=== PATIENT | female | born 1950 | race Hispanic/Latino ===

== ENCOUNTER → 2021-09-18 | Outpatient (CLI) | payer MEDICARE | END | disposition home or self-care (01) | LOC: SHCH 09:39 | PROVIDERS: ATTEND Student in an Organized Health Care Education/Training Program | DX: R22.42 Localized swelling, mass and lump, left lower limb (principal) | CPT/HCPCS: 93306; 93970 ==

== ENCOUNTER → 2021-11-21 | Outpatient (CLI) | payer MEDICARE | END | disposition home or self-care (01) | LOC: RAH 10:58 | PROVIDERS: ATTEND Student in an Organized Health Care Education/Training Program | DX: I82.409 Acute embolism and thrombosis of unspecified deep veins of unspecified lower extremity (principal); R22.43 Localized swelling, mass and lump, lower limb, bilateral | CPT/HCPCS: 93970 ==

== ENCOUNTER 2022-08-21 17:15 | Inpatient (IN) | payer MEDICARE ==
[~2022-08-21] VITALS: Ht 157.5 cm; Wt 128.1 kg
[2022-08-21 18:30] LABS: BASOPHILS % (AUTO) 0.7 % (0.0-5.0); EOSINOPHILS % (AUTO) 0.9 % (0.0-8.0); HEMATOCRIT 42.8 % (36-48); LYMPHOCYTES % (AUTO) 14.7 % (21.0-51.0); MEAN CORPUSCULAR HEMOGLOBIN 30.3 pg (27.0-33.0); MEAN CORPUSCULAR HGB CONC 33.6 g/dL (32.0-36.0); MEAN CORPUSCULAR VOLUME 90.1 fL (79-99); MONOCYTES % (AUTO) 11.1 % (3.0-13.0); PLATELET COUNT (AUTO) 148 K/uL (130-400); RED BLOOD CELL COUNT(AUTO) 4.75 MIL/uL (4.00-5.50); RED CELL DISTRIBUTION WIDTH 13.7 % (11.0-15.5); WHITE BLOOD COUNT (AUTO) 6.9 K/uL (4.8-10.8)
[2022-08-21 18:38] LABS: CREATININE 1.1 mg/dL (0.5-1.5)
[2022-08-21 18:51] LABS: ALBUMIN 3.6 g/dL (3.5-5.0); THYROID STIMULATING HORMONE 0.92 uIU/mL (0.36-3.74); TOTAL PROTEIN, SERUM 7.2 g/dL (6.0-8.3)
[2022-08-21] MEDS ORDERED: IOHEXOL-350 75 ML VIAL IV ONE (19:00)
[2022-08-21] MEDS ORDERED: HEPARIN 5,000 UNIT VIAL IV PRN (20:00)
[2022-08-21 20:04] LABS: INR 1.05 (0.85-1.15); PROTHROMBIN TIME 11.4 SEC (9.6-11.6)
[2022-08-21] MEDS: HEPARIN 25,000 UNITS/250ML D5W 250 ML IV SCH (21:00)
[2022-08-21 22:10] VITALS: BP 141/48
[2022-08-21] MEDS ORDERED: TRAM50TA4 PO (22:32)
[2022-08-21] MEDS ORDERED: LEVO100T4 PO (22:32)
[2022-08-21] MEDS ORDERED: CHOL500050 PO (22:32)
[2022-08-21] MEDS ORDERED: SEMA1PEN3 SQ (22:32)
[2022-08-21 23:39] VITALS: BP 149/80
[2022-08-22 04:00] VITALS: BP 152/77
[2022-08-22] MEDS: LOSARTAN 25 MG TABLET PO SCH (07:55)
[2022-08-22] MEDS: FAMOTIDINE 20MG TAB PO SCH (07:55)
[2022-08-22] MEDS: SPIRONOLACTONE 25 MG TAB PO SCH (07:55)
[2022-08-22] MEDS: FUROSEMIDE 40MG VIAL IV SCH ×2 (07:56→20:37)
[2022-08-22 07:57] VITALS: BP 140/80
[2022-08-22] MEDS: LEVOTHYROXINE 100 MCG TABLET PO SCH (08:08)
[2022-08-22] MEDS ORDERED: ERGOCALCIFEROL (VITAMIN D2) 50,000 UNIT CAPSULE PO SCH ×2 (09:00)
[2022-08-22] MEDS ORDERED: FUROSEMIDE 40MG VIAL IV SCH (09:00)
[2022-08-22] MEDS: HEPARIN 25,000 UNITS/250ML D5W 250 ML IV SCH (10:09)
[2022-08-22 11:49] VITALS: BP 150/74
[2022-08-22 15:47] VITALS: BP 141/73
[2022-08-22 19:28] VITALS: BP 143/85
[2022-08-22 23:14] VITALS: BP 133/72
[2022-08-23 00:06] VITALS: BP 143/86
[2022-08-23 03:43] VITALS: BP_SYST 115; BP_SYST 123; BP_DIAS 69; BP_DIAS 83
[2022-08-23 04:03] LABS: BASOPHILS % (AUTO) 0.8 % (0.0-5.0); EOSINOPHILS % (AUTO) 1.1 % (0.0-8.0); HEMATOCRIT 39.5 % (36-48); LYMPHOCYTES % (AUTO) 28.8 % (21.0-51.0); MEAN CORPUSCULAR HEMOGLOBIN 30.2 pg (27.0-33.0); MEAN CORPUSCULAR HGB CONC 33.7 g/dL (32.0-36.0); MEAN CORPUSCULAR VOLUME 89.8 fL (79-99); MONOCYTES % (AUTO) 15.4 % (3.0-13.0); NEUTROPHILS % (AUTO) 53.1 % (40.0-77.0); PLATELET COUNT (AUTO) 152 K/uL (130-400); RED CELL DISTRIBUTION WIDTH 13.7 % (11.0-15.5); WHITE BLOOD COUNT (AUTO) 6.1 K/uL (4.8-10.8)
[2022-08-23 04:07] LABS: CREATININE 0.8 mg/dL (0.5-1.5); POTASSIUM 3.5 mmol/L (3.5-5.1)
[2022-08-23] MEDS: HEPARIN 25,000 UNITS/250ML D5W 250 ML IV SCH (05:22)
[2022-08-23] MEDS: LEVOTHYROXINE 100 MCG TABLET PO SCH ×2 (05:25→05:40)
[2022-08-23] MEDS: LOSARTAN 25 MG TABLET PO SCH (07:39)
[2022-08-23] MEDS: FAMOTIDINE 20MG TAB PO SCH (07:39)
[2022-08-23] MEDS: FUROSEMIDE 40MG VIAL IV SCH ×2 (07:40→20:55)
[2022-08-23] MEDS: SPIRONOLACTONE 25 MG TAB PO SCH (07:40)
[2022-08-23 08:00] VITALS: BP 157/73
[2022-08-23] MEDS ORDERED: TRAMADOL HCL 50 MG TABLET PO PRN (09:00)
[2022-08-23 16:00] VITALS: BP 133/67
[2022-08-23 19:00] VITALS: BP 143/86
[2022-08-23] MEDS: RIVAROXABAN 2.5 MG TABLET PO SCH (20:55)
[2022-08-24] VITALS (7 sets, daily range): BP systolic 132–158; BP diastolic 69–91
[2022-08-24 04:31] LABS: POTASSIUM 3.9 mmol/L (3.5-5.1)
[2022-08-24] MEDS: LEVOTHYROXINE 100 MCG TABLET PO SCH ×2 (06:06→06:30)
[2022-08-24] MEDS: SPIRONOLACTONE 25 MG TAB PO SCH (07:56)
[2022-08-24] MEDS: FAMOTIDINE 20MG TAB PO SCH (07:56)
[2022-08-24] MEDS: FUROSEMIDE 40MG VIAL IV SCH ×2 (07:56→20:25)
[2022-08-24] MEDS: LOSARTAN 25 MG TABLET PO SCH (07:56)
[2022-08-24] MEDS: RIVAROXABAN 2.5 MG TABLET PO SCH ×2 (07:58→20:25)
[2022-08-25 04:48] LABS: CREATININE 0.9 mg/dL (0.5-1.5); POTASSIUM 3.1 mmol/L (3.5-5.1)
[2022-08-25 04:53] VITALS: BP 161/78
[2022-08-25 06:03] VITALS: BP 150/91
[2022-08-25] MEDS: LEVOTHYROXINE 100 MCG TABLET PO SCH (06:03)
[2022-08-25 07:00] VITALS: BP 160/93
[2022-08-25] MEDS ORDERED: KCL 20 MEQ ERTAB PO SCH (07:30)
[2022-08-25] MEDS ORDERED: FUROSEMIDE 20 MG TABLET PO SCH (09:00)
[2022-08-25] MEDS ORDERED: LOSARTAN 25 MG TABLET PO SCH (09:00)
[2022-08-25] MEDS: RIVAROXABAN 2.5 MG TABLET PO SCH (09:41)
[2022-08-25] MEDS: SPIRONOLACTONE 25 MG TAB PO SCH (09:42)
[2022-08-25] MEDS: FAMOTIDINE 20MG TAB PO SCH (09:42)
[2022-08-25 11:00] VITALS: BP 145/73
[2022-08-25] MEDS ORDERED: POTASSIUM CHLORIDE 10% ELIXIR 20 MEQ/15 ML UDCUP PO PRN (11:00)
[2022-08-25] MEDS ORDERED: LIDOCAINE HCL-MPF 1% 2ML VIAL IV PRN (11:00)
[2022-08-25] MEDS ORDERED: POTASSIUM CHLORIDE 10% ELIXIR 20 MEQ/15 ML UDCUP PO ONE (11:00)
[2022-08-25] MEDS ORDERED: KCL 20 MEQ ERTAB PO PRN (11:00)
[2022-08-25] MEDS ORDERED: POTASSIUM CHLORIDE 20MEQ/100ML 100 ML IV PRN (11:00)
[2022-08-25] MEDS ORDERED: FAMO-136 PO (15:38)
[2022-08-25] MEDS ORDERED: LOSA50TA64 PO (15:38)
[2022-08-25] MEDS ORDERED: RIVA15TA PO (15:38)
[2022-08-25] MEDS ORDERED: FURO20TA4 PO (15:38)
[2022-08-25 16:00] VITALS: BP 140/78
== END 2022-08-25 17:00 | disposition home or self-care (01) | DRG 175 ==
LOC: EDH 17:15 → DIRECT 17:56 → 2DH 21:54
PROVIDERS: ADMIT Internal Medicine; ATTEND Internal Medicine
DX: I26.99 Other pulmonary embolism without acute cor pulmonale (principal); J96.01 Acute respiratory failure with hypoxia; Z68.43 Body mass index [BMI] 50.0-59.9, adult; I82.411 Acute embolism and thrombosis of right femoral vein; I82.431 Acute embolism and thrombosis of right popliteal vein; Z20.822 Contact with and (suspected) exposure to COVID-19; E66.01 Morbid (severe) obesity due to excess calories; I89.0 Lymphedema, not elsewhere classified; E03.9 Hypothyroidism, unspecified; I10 Essential (primary) hypertension; E78.5 Hyperlipidemia, unspecified; Z90.49 Acquired absence of other specified parts of digestive tract; Z79.01 Long term (current) use of anticoagulants; Z79.899 Other long term (current) drug therapy
CPT/HCPCS: 36415; 71270; 80048; 80053; 83735; 84132; 84443; 85025; 85610; 85730; 87635; 93306; 93356; 93971; 94760; G0378; J1644; J1940; Q9967

== ENCOUNTER → 2022-11-14 | Outpatient (CLI) | payer MEDICARE ==
[~2022-11-14] MED LIST: CHOL500050 PO; FAMO-136 PO; FURO20TA4 PO; LEVO100T4 PO; LOSA50TA64 PO; RIVA15TA PO; SEMA1PEN3 SQ; TRAM50TA4 PO
[2022-11-14 15:18] LABS: BASOPHILS % (AUTO) 1.5 % (0.0-5.0); EOSINOPHILS % (AUTO) 1.2 % (0.0-8.0); HEMATOCRIT 42.2 % (36-48); LYMPHOCYTES % (AUTO) 26.1 % (21.0-51.0); MEAN CORPUSCULAR HEMOGLOBIN 29.9 pg (27.0-33.0); MEAN CORPUSCULAR HGB CONC 32.7 g/dL (32.0-36.0); MEAN CORPUSCULAR VOLUME 91.5 fL (79-99); MONOCYTES % (AUTO) 12.5 % (3.0-13.0); NEUTROPHILS % (AUTO) 55.4 % (40.0-77.0); PLATELET COUNT (AUTO) 305 K/uL (130-400); RED BLOOD CELL COUNT(AUTO) 4.61 MIL/uL (4.00-5.50); RED CELL DISTRIBUTION WIDTH 14.1 % (11.0-15.5)
[2022-11-14 15:37] LABS: ALBUMIN 3.2 g/dL (3.5-5.0); CREATININE 0.9 mg/dL (0.5-1.5); THYROID STIMULATING HORMONE 0.69 uIU/mL (0.36-3.74); TOTAL PROTEIN, SERUM 7.1 g/dL (6.0-8.3)
[2022-11-14 15:45] LABS: HEMOGLOBIN A1C 5.9 % (4.0-6.0)
== END | disposition home or self-care (01) ==
LOC: LAB 11:48
PROVIDERS: ATTEND Student in an Organized Health Care Education/Training Program
DX: I82.411 Acute embolism and thrombosis of right femoral vein (principal); I10 Essential (primary) hypertension; E78.5 Hyperlipidemia, unspecified; R60.9 Edema, unspecified; E03.9 Hypothyroidism, unspecified; I89.0 Lymphedema, not elsewhere classified; Z79.899 Other long term (current) drug therapy
CPT/HCPCS: 36415; 80053; 80061; 83036; 84443; 85025

== ENCOUNTER → 2022-12-31 | Outpatient (CLI) | payer MEDICARE ==
[2022-12-31 13:40] LABS: CREATININE 0.8 mg/dL (0.5-1.5); POTASSIUM 3.7 mmol/L (3.5-5.1); TOTAL PROTEIN, SERUM 6.8 g/dL (6.0-8.3)
== END | disposition home or self-care (01) ==
LOC: LAB 10:51
PROVIDERS: ATTEND Student in an Organized Health Care Education/Training Program
DX: I10 Essential (primary) hypertension (principal); K30 Functional dyspepsia
CPT/HCPCS: 36415; 80053; 83013

== ENCOUNTER → 2023-01-13 | Outpatient (CLI) | payer MEDICARE ==
[~2023-01-13] MED LIST changes: +GADOTERATE MEGLUMINE 10 MMOL/20 ML VIAL IV ONE
== END | disposition home or self-care (01) ==
LOC: RAH 11:59
PROVIDERS: ATTEND Student in an Organized Health Care Education/Training Program
DX: M47.816 Spondylosis without myelopathy or radiculopathy, lumbar region (principal); M48.061 Spinal stenosis, lumbar region without neurogenic claudication; M81.0 Age-related osteoporosis without current pathological fracture
CPT/HCPCS: 72158; A9575

== ENCOUNTER → 2023-10-09 | Outpatient (CLI) | payer MEDICARE ==
[~2023-10-09] MED LIST changes: -GADOTERATE MEGLUMINE 10 MMOL/20 ML VIAL IV ONE
[2023-10-09 15:17] LABS: BASOPHILS # (AUTO) 0.04 K/uL (0.00-0.20); BASOPHILS % (AUTO) 0.8 % (0.0-5.0); EOSINOPHILS # (AUTO) 0.03 K/uL (0.00-0.70); EOSINOPHILS % (AUTO) 0.6 % (0.0-8.0); HEMATOCRIT 41.6 % (36-48); IMMATURE GRANULOCYTE ABSOLUTE 0.04 K/uL (0-1); LYMPHOCYTES # (AUTO) 1.4 K/uL (1.0-4.8); LYMPHOCYTES % (AUTO) 25.7 % (21.0-51.0); MEAN CORPUSCULAR HEMOGLOBIN 32.6 pg (27.0-33.0); MEAN CORPUSCULAR HGB CONC 33.2 g/dL (32.0-36.0); MEAN CORPUSCULAR VOLUME 98.3 fL (79-99); MONOCYTES # (AUTO) 0.7 K/uL (0.1-1.0); MONOCYTES % (AUTO) 12.8 % (3.0-13.0); NEUTROPHILS # (AUTO) 3.1 K/uL (1.8-7.7); NEUTROPHILS % (AUTO) 59.3 % (40.0-77.0); PLATELET COUNT (AUTO) 240 K/uL (130-400); RED BLOOD CELL COUNT(AUTO) 4.23 MIL/uL (4.00-5.50); RED CELL DISTRIBUTION WIDTH 14.3 % (11.0-15.5); WHITE BLOOD COUNT (AUTO) 5.3 K/uL (4.8-10.8)
[2023-10-09 15:29] LABS: INR 0.94 (0.85-1.15); PROTHROMBIN TIME 10.9 SEC (9.6-11.6)
[2023-10-09 15:30] LABS: PARTIAL THROMBOPLASTIN TIME 23.8 SEC (26.3-35.5)
[2023-10-09 15:50] LABS: ALBUMIN 3.3 g/dL (3.5-5.0); BILIRUBIN,TOTAL 0.6 mg/dL (0.2-1.0); CREATININE 0.9 mg/dL (0.5-1.5); POTASSIUM 3.9 mmol/L (3.5-5.1); TOTAL PROTEIN, SERUM 6.8 g/dL (6.0-8.3)
== END | disposition home or self-care (01) ==
LOC: LAB 11:47
PROVIDERS: ATTEND Student in an Organized Health Care Education/Training Program
DX: I82.411 Acute embolism and thrombosis of right femoral vein (principal); E78.5 Hyperlipidemia, unspecified; R60.9 Edema, unspecified; R06.02 Shortness of breath; I87.2 Venous insufficiency (chronic) (peripheral); Z86.718 Personal history of other venous thrombosis and embolism
CPT/HCPCS: 36415; 80053; 80061; 85025; 85610; 85730

== ENCOUNTER → 2023-12-02 | Outpatient (CLI) | payer MEDICARE ==
[~2023-12-02] MED LIST changes: +GADOTERATE MEGLUMINE 10 MMOL/20 ML VIAL IV ONE
== END | disposition home or self-care (01) ==
LOC: RAH 13:35
PROVIDERS: ATTEND Student in an Organized Health Care Education/Training Program
DX: M75.100 Unspecified rotator cuff tear or rupture of unspecified shoulder, not specified as traumatic (principal); S43.432A Superior glenoid labrum lesion of left shoulder, initial encounter; S43.431A Superior glenoid labrum lesion of right shoulder, initial encounter; M75.102 Unspecified rotator cuff tear or rupture of left shoulder, not specified as traumatic; M75.101 Unspecified rotator cuff tear or rupture of right shoulder, not specified as traumatic; X58.XXXA Exposure to other specified factors, initial encounter; Y93.89 Activity, other specified; Y92.89 Other specified places as the place of occurrence of the external cause; Y99.8 Other external cause status
CPT/HCPCS: 73223; A9575

== ENCOUNTER → 2024-01-05 | Outpatient (CLI) | payer MEDICARE ==
[~2024-01-05] MED LIST changes: -GADOTERATE MEGLUMINE 10 MMOL/20 ML VIAL IV ONE
[2024-01-05 12:12] LABS: BASOPHILS # (AUTO) 0.06 K/uL (0.00-0.20); BASOPHILS % (AUTO) 1.2 % (0.0-5.0); EOSINOPHILS # (AUTO) 0.12 K/uL (0.00-0.70); EOSINOPHILS % (AUTO) 2.5 % (0.0-8.0); HEMATOCRIT 42.9 % (36-48); IMMATURE GRANULOCYTE ABSOLUTE 0.02 K/uL (0-1); LYMPHOCYTES # (AUTO) 1.6 K/uL (1.0-4.8); MEAN CORPUSCULAR HEMOGLOBIN 30.2 pg (27.0-33.0); MEAN CORPUSCULAR HGB CONC 31.9 g/dL (32.0-36.0); MEAN CORPUSCULAR VOLUME 94.7 fL (79-99); MONOCYTES # (AUTO) 0.6 K/uL (0.1-1.0); MONOCYTES % (AUTO) 11.8 % (3.0-13.0); NEUTROPHILS # (AUTO) 2.5 K/uL (1.8-7.7); NEUTROPHILS % (AUTO) 52.1 % (40.0-77.0); PLATELET COUNT (AUTO) 211 K/uL (130-400); RED BLOOD CELL COUNT(AUTO) 4.53 MIL/uL (4.00-5.50); RED CELL DISTRIBUTION WIDTH 13.2 % (11.0-15.5); WHITE BLOOD COUNT (AUTO) 4.8 K/uL (4.8-10.8)
[2024-01-05 12:30] LABS: INR 0.97 (0.85-1.15); PROTHROMBIN TIME 11.3 SEC (9.6-11.6)
[2024-01-05 12:31] LABS: PARTIAL THROMBOPLASTIN TIME 24.8 SEC (26.3-35.5)
[2024-01-05 12:43] LABS: CREATININE 0.7 mg/dL (0.5-1.5); POTASSIUM 3.7 mmol/L (3.5-5.1)
== END | disposition home or self-care (01) ==
LOC: LAB 10:54
PROVIDERS: ATTEND Student in an Organized Health Care Education/Training Program
DX: I87.1 Compression of vein (principal); I87.2 Venous insufficiency (chronic) (peripheral); R06.02 Shortness of breath; I82.411 Acute embolism and thrombosis of right femoral vein; I89.0 Lymphedema, not elsewhere classified; I10 Essential (primary) hypertension; K30 Functional dyspepsia; M75.100 Unspecified rotator cuff tear or rupture of unspecified shoulder, not specified as traumatic; M12.819 Other specific arthropathies, not elsewhere classified, unspecified shoulder; E66.01 Morbid (severe) obesity due to excess calories; Z68.42 Body mass index [BMI] 45.0-49.9, adult; Z86.718 Personal history of other venous thrombosis and embolism
CPT/HCPCS: 36415; 80048; 85025; 85610; 85730

== ENCOUNTER → 2024-04-19 | Outpatient (CLI) | payer MEDICARE | END | disposition home or self-care (01) | LOC: SHCH 10:40 | PROVIDERS: ATTEND Internal Medicine Cardiovascular Disease | DX: I87.2 Venous insufficiency (chronic) (peripheral) (principal) | CPT/HCPCS: 93970 ==

== ENCOUNTER → 2024-08-23 | Outpatient (CLI) | payer MEDICARE | END | disposition home or self-care (01) | LOC: SHCH 09:21 | PROVIDERS: ATTEND Student in an Organized Health Care Education/Training Program | DX: R06.02 Shortness of breath (principal) | CPT/HCPCS: 93306 ==

== ENCOUNTER → 2024-09-02 | Outpatient (CLI) | payer MEDICARE | END | disposition home or self-care (01) | LOC: SHCH 09:49 | PROVIDERS: ATTEND Student in an Organized Health Care Education/Training Program | DX: R55 Syncope and collapse (principal); I65.23 Occlusion and stenosis of bilateral carotid arteries | CPT/HCPCS: 93880 ==

== ENCOUNTER → 2024-10-24 | Outpatient (CLI) | payer MEDICARE | END | disposition home or self-care (01) | LOC: SHCH 11:15 | PROVIDERS: ATTEND Student in an Organized Health Care Education/Training Program | DX: I70.213 Atherosclerosis of native arteries of extremities with intermittent claudication, bilateral legs (principal) | CPT/HCPCS: 93925 ==

== ENCOUNTER → 2024-11-13 | Outpatient (CLI) | payer MEDICARE ==
[2024-11-13 22:57] VITALS: PULSE 60; RESP 16
[2024-11-13 23:30] VITALS: PULSE 58; RESP 8
[2024-11-14] VITALS (11 sets, daily range): PULSE 48–62; RESP 12–18
--- NOTE | 2024-11-14 04:05 | NUR ---
OZ[facility] Addendum: 11/14/24 at 0406 by EPHRAIM GEIGER Amended: Links added.
== END | disposition home or self-care (01) ==
LOC: SLP 20:22
PROVIDERS: ATTEND Student in an Organized Health Care Education/Training Program
DX: G47.33 Obstructive sleep apnea (adult) (pediatric) (principal)
CPT/HCPCS: 95810

== ENCOUNTER → 2024-11-28 | Outpatient (CLI) | payer MEDICARE ==
[~2024-11-28] MED LIST changes: +IOHEXOL 350 MG/ML 100ML INFUS..BTL IV ONE; +IOHEXOL-350 50ML VIAL IV ONE
--- NOTE | 2024-11-28 10:44 | HMCIMG ---
CT CARDIAC ANGIO W/CONT. CCTA REASON: CHEST PAIN COMPARISON: None TECHNIQUE: Images are obtained through the heart in the axial plane before and during bolus IV contrast infusion, 100 cc Omnipaque 350. 2-D and 3-D multiplanar reconstruction images were then performed. The injection had to be repeated once due to motion artifact on the first sequence, total contrast volume was 200 cc. FINDINGS: This dictation is for the noncardiac findings only. Cardiac and coronary artery findings are reported separately. Visualized portions of the lungs are clear. There is normal-appearing pulmonary interstitium. There is no hilar or mediastinal lymphadenopathy. Chest wall structures appear unremarkable. IMPRESSION: 1. Unremarkable noncardiac portions of CT cardiac angiography.
--- NOTE | 2024-12-01 18:43 | CARDIOLOGY ---
RAD REPORT: [facility] CT ANGIO RADIOLOGY REPORT: CORONARY CT ANGIOGRAPHY DATE: Dec 01, 2024 QUALITY: Excellent CLINICAL HISTORY AND INDICATION: [JENSEN ] TECHNIQUE: After obtaining a preliminary physician assistant certified image, contrast imaging performed on an [employer]illon [id number] scanner. A dedicated, limited window, coronary imaging protocol was used, with single breath-hold, retrospective ECG gating, and automated arrhythmia rejection. 100 cc of low osmolar contrast agent: Omnipaque 350 was delivered via a 18-gauge IV catheter in the right antecubital fossa, using a power injector and followed by 60 cc of normal saline bolus as a chaser. Collimated images were reformatted at 0.5 mm intervals, and sent to an offline independent workstation for interpretation, using 3D anatomic reconstructions: Curved multiplanar reconstructions, maximum intensity projections, and multiplanar imaging. No metoprolol was administered prior to scanning due to low baseline heart rate. 0.4 mg SL nitroglycerin was given. CORONARY ARTERY DESCRIPTIONS: The coronary arteries arise in normal position. Left main coronary artery: Normal caliber vessel that bifurcates into the LAD and LCx. No stenosis. Left anterior descending coronary artery: Normal caliber vessel and gives rise to diagonal and septal branches. No stenosis. Left circumflex coronary artery: Normal caliber, nondominant and gives rise to a large OM branch. No stenosis. Right coronary artery: Large, dominant vessel giving rise to the PL and PDA branches. No stenosis. CAD-RADs: 0, absence of CAD. Sherrill Martin MD Cardiovascular Disease [facility] SHERRILL MARTIN MD Dec 01, 2024 18:43
== END | disposition home or self-care (01) ==
LOC: RAH 08:52
PROVIDERS: ATTEND Student in an Organized Health Care Education/Training Program
DX: R07.9 Chest pain, unspecified (principal)
CPT/HCPCS: 75574; Q9967 ×2

== ENCOUNTER → 2025-03-17 | Outpatient (CLI) | payer MEDICARE ==
[~2025-03-17] MED LIST changes: -IOHEXOL 350 MG/ML 100ML INFUS..BTL IV ONE; -IOHEXOL-350 50ML VIAL IV ONE
--- NOTE | 2025-03-17 13:56 | HMCIMG ---
MRI LUMBAR SPINE WITHOUT CONTRAST INDICATION: M54.16 radiculopathy lumbar area COMPARISON: None PARAMETERS: Long and short axis fat and water weighted sequences were obtained through the lumbar spine. FINDINGS: Normal lordosis of the lumbar spine is maintained. The lumbar vertebral bodies are normal in height, without evidence for acute compression fracture or osseous marrow replacing process. The conus medullaris is normal in signal and terminates at the appropriate level. T9-T10, T10-T11, and T11-T12: Shallow broad-based posterior disc displacement and mild to moderate bilateral facet disease at all levels contributing to mild to moderate central canal stenosis without any significant neuroforaminal narrowing. T12-L1: Extremely shallow posterior disc displacement with right and left foraminal extension, but no significant neuroforaminal narrowing or central canal stenosis. Mild bilateral facet disease. Mild to moderate disc height loss. L1-L2: Shallow posterior disc disc space and, including right and left foraminal extension and mild disc height loss without any significant neuroforaminal narrowing or central canal stenosis. No significant facet disease. L2-L3: Extremely shallow posterior disc displacement without any significant neuroforaminal narrowing or central canal stenosis. Moderate hypertrophic right and mild to moderate nonhypertrophic left facet disease as well as mild bilateral ligamentum flavum hypertrophy. L3-L4: Shallow posterior disc displacement, including right and left foraminal extension, mild to moderate disc height loss, mild bilateral ligamentum flavum hypertrophy, and moderate hypertrophic left greater than right disease contributing to mild bilateral neuroforaminal narrowing and mild to moderate central canal stenosis. L4-L5: Extremely shallow right greater than left foraminal distance placement, moderate disc height loss, and moderate hypertrophic left greater than right facet disease along with mild to moderate bilateral ligamentum flavum hypertrophy contributing to mild to moderate "trefoil-like" central canal stenosis and secondary mild mass effect upon the descending right greater than left nerve roots without any significant neuroforaminal narrowing. L5-S1: Severe hypertrophic left greater than right bilateral facet disease contributing to low-grade (2 mm) anterolisthesis of L5 upon S1 and mild left neuroforaminal narrowing without any significant central canal stenosis. No evidence for intraannular tear or discitis. Multilevel mild to moderate anterior endplate osteophytic spurring. The pre- and paraspinous soft tissues appear unremarkable. ANCILLARY FINDINGS: None. IMPRESSION: 1. Extremely shallow right greater than left foraminal distance placement, moderate disc height loss, and moderate hypertrophic left greater than right facet disease along with mild to moderate bilateral ligamentum flavum hypertrophy at the L4-L5 level contributing to mild to moderate "trefoil-like" central canal stenosis and secondary mild mass effect upon the descending right greater than left nerve roots without any significant neuroforaminal narrowing. 2. Mild bilateral neuroforaminal narrowing and mild to moderate central canal stenosis at the L3-L4 level. 3. Mild to moderate central canal stenosis from the T9-T10 to T11-T12 levels. 4. Level by level analysis, additional minor degenerative changes, and pertinent negatives as reported.
== END | disposition home or self-care (01) ==
LOC: RAH 12:24
PROVIDERS: ATTEND Anesthesiology
DX: M47.26 Other spondylosis with radiculopathy, lumbar region (principal); M47.818 Spondylosis without myelopathy or radiculopathy, sacral and sacrococcygeal region; M47.814 Spondylosis without myelopathy or radiculopathy, thoracic region; M48.07 Spinal stenosis, lumbosacral region; M48.04 Spinal stenosis, thoracic region; M43.17 Spondylolisthesis, lumbosacral region; M46.06 Spinal enthesopathy, lumbar region; M25.78 Osteophyte, vertebrae; R29.890 Loss of height; M47.896 Other spondylosis, lumbar region; M54.50 Low back pain, unspecified; G89.4 Chronic pain syndrome
CPT/HCPCS: 72148

== ENCOUNTER → 2025-03-21 | Outpatient (CLI) | payer MEDICARE ==
--- NOTE | 2025-03-21 12:03 | HMCIMG ---
Exam Type: MR SHOULDER RIGHT WO Clinical Information: CHRONIC PAIN SYNDROME Comparison: None Technique: The examination is done with sagittal T1 and inversion recovery sequences, axial GRE sequence and coronal inversion recovery, proton density and T2 weighted [id number] sequences. FINDINGS: There is a full thickness tear of the rotator cuff tendon supraspinatus component without retraction. The rest of the rotator cuff tendon structures are preserved. The acromioclavicular joint is intact. The coracoclavicular and coracohumeral ligaments are intact. The biceps anchor is well seen, without significant tears. The biceps tendon runs in the bicipital groove without significant high signal intensity to suggest sprain. No displacement is seen from the groove itself. The structures of the labrum are intact; specifically, there is no evidence of SLAP tear. No significant abnormalities of the posterior, inferior, or inferior labral structures are seen either. No paralabral cysts are seen. The superior, middle, and inferior glenohumeral ligaments are intact. Glenohumeral joint cartilage is preserved. There is no evidence of chondromalacia. No loose intra-articular chondroid bodies are identified. There is a focus of high signal intensity within the marrow of the scapular neck and extending to the base of the acromion process. The appearance is suggestive of either fibrosis place at or a hemangioma. Consider confirmation with a CT of the shoulder without contrast. The structures of the joint capsule are preserved. The limited examination of the deltoid and the limited visualized portions of the pectoralis major are intact. IMPRESSION: 1. ROTATOR CUFF TENDON TEAR. 2. There is a focus of high signal intensity within the marrow of the scapular neck and extending to the base of the acromion process. The appearance is suggestive of either fibrosis place at or a hemangioma. Consider confirmation with a CT of the shoulder without contrast.
== END | disposition home or self-care (01) ==
LOC: RAH 10:50
PROVIDERS: ATTEND Anesthesiology
DX: S46.011A Strain of muscle(s) and tendon(s) of the rotator cuff of right shoulder, initial encounter (principal); M25.511 Pain in right shoulder; G89.4 Chronic pain syndrome; X58.XXXA Exposure to other specified factors, initial encounter; Y93.89 Activity, other specified; Y92.89 Other specified places as the place of occurrence of the external cause; Y99.8 Other external cause status
CPT/HCPCS: 73221

== ENCOUNTER → 2025-03-22 | Outpatient (CLI) | payer MEDICARE ==
--- NOTE | 2025-03-22 14:24 | HMCIMG ---
Exam Type: MR KNEE RIGHT WO Clinical Information: PAIN R KNEE Comparison: None Technique: MRI of the knee was done with triplane localizer, axial T2 as well as sagittal proton density T2, T1, and fat-saturated T2. In addition, coronal T1 and coronal fat-saturated spin-echo sequences are available for review. FINDINGS: There is a complex tear of the posterior horn of the medial meniscus with inferior articular surface involvement. No other meniscal tears are present. Degenerative changes particularly involving the medial compartment with multi compartment articular cartilage loss and joint space narrowing. Subchondral sclerosis. The cruciate and collateral ligaments are intact. No periarticular soft tissue abnormalities are seen. There are no other gross abnormalities. IMPRESSION: Complex tear posterior horn medial meniscus with inferior articular surface involvement. Significant degenerative changes particularly involving the medial compartment.
== END | disposition home or self-care (01) ==
LOC: RAH 11:02
PROVIDERS: ATTEND Anesthesiology
DX: S83.231A Complex tear of medial meniscus, current injury, right knee, initial encounter (principal); M17.0 Bilateral primary osteoarthritis of knee; M25.862 Other specified joint disorders, left knee; M25.861 Other specified joint disorders, right knee; M25.562 Pain in left knee; M25.561 Pain in right knee; X58.XXXA Exposure to other specified factors, initial encounter; Y93.89 Activity, other specified; Y92.89 Other specified places as the place of occurrence of the external cause; Y99.8 Other external cause status
CPT/HCPCS: 73721

== ENCOUNTER → 2025-03-29 | Outpatient (CLI) | payer MEDICARE | END | disposition home or self-care (01) | LOC: SHCH 10:08 | PROVIDERS: ATTEND Internal Medicine Cardiovascular Disease | DX: I87.2 Venous insufficiency (chronic) (peripheral) (principal); I87.1 Compression of vein | CPT/HCPCS: 93970 ==

== ENCOUNTER → 2025-04-03 | Outpatient (CLI) | payer MEDICARE ==
--- NOTE | 2025-04-03 19:05 | HMCIMG ---
Exam Type: MR SHOULDER LEFT WO Clinical Information: PAIN Comparison: None Technique: The examination is done with sagittal T1 and inversion recovery sequences, axial GRE sequence and coronal inversion recovery, proton density and T2 weighted [id number] sequences. FINDINGS: There is a full thickness tear of the rotator cuff tendon supraspinatus component without retraction. The rest of the rotator cuff tendon structures are preserved. The acromioclavicular joint is intact. The coracoclavicular and coracohumeral ligaments are intact. The biceps anchor is well seen, without significant tears. The biceps tendon runs in the bicipital groove without significant high signal intensity to suggest sprain. No displacement is seen from the groove itself. There is evidence of an anterior labral tear. There are extensive degenerative changes of the glenohumeral joint. There is a joint effusion. The supraglenoid notch is clear without evidence of space occupying lesions or tumor. The structures of the joint capsule are preserved. The limited examination of the deltoid and the limited visualized portions of the pectoralis major are intact. IMPRESSION: 1. ROTATOR CUFF TENDON TEAR. 2. Degenerative changes of the glenohumeral joint. 3. Anterior labral tear.
== END | disposition home or self-care (01) ==
LOC: RAH 14:30
PROVIDERS: ATTEND Anesthesiology
DX: S46.012D Strain of muscle(s) and tendon(s) of the rotator cuff of left shoulder, subsequent encounter (principal); S43.492D Other sprain of left shoulder joint, subsequent encounter; M19.012 Primary osteoarthritis, left shoulder; M25.512 Pain in left shoulder; G89.4 Chronic pain syndrome; X58.XXXD Exposure to other specified factors, subsequent encounter
CPT/HCPCS: 73221

== ENCOUNTER → 2025-04-10 | Outpatient (CLI) | payer MEDICARE ==
[2025-04-10 12:57] LABS: BASOPHILS # (AUTO) 0.02 K/uL (0.00-0.20); BASOPHILS % (AUTO) 0.3 % (0.0-5.0); HEMATOCRIT 42.3 % (36-48); LYMPHOCYTES # (AUTO) 1.3 K/uL (1.0-4.8); LYMPHOCYTES % (AUTO) 18.5 % (21.0-51.0); MEAN CORPUSCULAR HEMOGLOBIN 31.3 pg (27.0-33.0); MEAN CORPUSCULAR HGB CONC 33.6 g/dL (32.0-36.0); MEAN CORPUSCULAR VOLUME 93.4 fL (79-99); MONOCYTES # (AUTO) 0.8 K/uL (0.1-1.0); MONOCYTES % (AUTO) 12.3 % (3.0-13.0); NEUTROPHILS # (AUTO) 4.6 K/uL (1.8-7.7); NEUTROPHILS % (AUTO) 67.4 % (40.0-77.0); PLATELET COUNT (AUTO) 209 K/uL (130-400); RED BLOOD CELL COUNT(AUTO) 4.53 MIL/uL (4.00-5.50); RED CELL DISTRIBUTION WIDTH 14.4 % (11.0-15.5); WHITE BLOOD COUNT (AUTO) 6.8 K/uL (4.8-10.8)
[2025-04-10 13:07] LABS: INR 1.05 (0.85-1.15); PROTHROMBIN TIME 11.1 SEC (9.6-11.6)
[2025-04-10 13:09] LABS: PARTIAL THROMBOPLASTIN TIME 22.8 SEC (26.3-35.5)
[2025-04-10 13:24] LABS: CREATININE 0.9 mg/dL (0.5-1.0); POTASSIUM 4.6 mmol/L (3.5-5.1)
== END | disposition home or self-care (01) ==
LOC: LAB 12:19
PROVIDERS: ATTEND Internal Medicine Cardiovascular Disease
DX: Z01.812 Encounter for preprocedural laboratory examination (principal); I87.1 Compression of vein; Z79.01 Long term (current) use of anticoagulants
CPT/HCPCS: 36415; 80048; 85025; 85610; 85730

== ENCOUNTER → 2025-04-13 | Outpatient (CLI) | payer MEDICARE ==
[~2025-04-13] MED LIST changes: +IOHEXOL-350 75 ML VIAL IV ONE
--- NOTE | 2025-04-13 12:12 | HMCIMG ---
Exam Type: CT ABDOMEN/PELVIS W/WO CONTRAS Clinical Information: Unspecified abdominal pain Comparison: None Contrast: 100 cc's Isovue 370 IV, no complications or adverse reactions CT Dose Index (CTDI): 31.60 mGy Dose Length Product (DLP): 1740.80 total mGy-cm Findings: No evidence of nephro or ureterolithiasis is found. No hydronephrosis or ureteral dilatation is seen. The lung bases are clear. Postsurgical bariatric changes of the stomach are seen in the stomach is otherwise unremarkable. The spleen is unremarkable. It is not enlarged. Left iliac venous vascular stent seen. The pancreas shows normal anatomy. It is not fatty replaced. It shows no lesions. The pancreatic duct is not dilated. The gallbladder is unremarkable. It shows no cholelithiasis. The gallbladder wall is normal in thickness. There is no pericholecystic fluid. The is no acute or chronic inflammation noted. The adrenal glands are unremarkable. There is no enlargement. No lesions are noted. The liver is unremarkable. It shows no focal masses. The appendix is unremarkable. It shows no evidence of inflammation. No appendicolith is seen. The small bowel is unremarkable. There is no evidence of dilatation to suggest obstruction. No evidence of adynamic ileus is seen. There is no small bowel wall thickening to suggest enteritis. The colon is unremarkable. The urinary bladder is unremarkable. There is no wall thickening to suggest tumor or inflammation. There are no intraluminal calculi. There are no diverticula. There is no evidence of chronic bladder outlet obstruction. There is no evidence of urinary bladder distention to suggest urinary retention. The other pelvic structures are unremarkable. The bony and vascular structures are unremarkable for the patient's age. IMPRESSION: No acute pathology. This study was performed using dose reduction techniques to include automated exposure control and/or adjustment of the mA and/or kV according to patient size.
== END | disposition home or self-care (01) ==
LOC: RAH 09:04
PROVIDERS: ATTEND Internal Medicine
DX: T82.897A Other specified complication of cardiac prosthetic devices, implants and grafts, initial encounter (principal); R10.9 Unspecified abdominal pain; X58.XXXA Exposure to other specified factors, initial encounter; Y93.89 Activity, other specified; Y92.89 Other specified places as the place of occurrence of the external cause; Y99.8 Other external cause status
CPT/HCPCS: 74178; Q9967

== ENCOUNTER 2025-06-22 08:39 | Observation (INO) | payer MEDICARE ==
[2025-06-19 14:22] LABS: IMMATURE GRANULOCYTE ABSOLUTE 0.04 K/uL (0-1); NUCLEATED RED BLOOD CELLS 0.0 % (0.0-0.19); PLATELET COUNT (AUTO) 225 K/uL (130-400); RED BLOOD CELL COUNT(AUTO) 4.06 MIL/uL (4.00-5.50); RED CELL DISTRIBUTION WIDTH 14.0 % (11.0-15.5); WHITE BLOOD COUNT (AUTO) 5.9 K/uL (4.8-10.8)
[2025-06-19 14:26] LABS: CREATININE 0.9 mg/dL (0.5-1.0); GLOMERULAR FILTR. RATE CALC 67.0 mL/min (>90); GLUCOSE,RANDOM 92.0 mg/dL (70-105); SODIUM SERUM 138.0 mmol/L (136-145); UREA NITROGEN, BLOOD 29.0 mg/dL (7-18)
[2025-06-19 14:29] LABS: INR 1.05 (0.85-1.15)
[2025-06-19 15:08] VITALS: BP 140/78; PULSE 71; RESP 18; TEMP 97.2
--- NOTE | 2025-06-20 11:28 | NUR ---
REPORT REPORTED BILATERAL BREAST RASH LOCATED UNDERNEATH BREAST TO SABRINA MCNEIL. OK TO PROCEED
[2025-06-22] VITALS (16 sets, daily range): BP systolic 126–220; BP diastolic 55–124; PULSE 46–71; RESP 17–20; TEMP 97.2–98.3; O2SAT 98–100
[~2025-06-22] VITALS: Ht 157.5 cm; Wt 113.4 kg
[~2025-06-22 08:39] MED LIST changes: -CHOL500050 PO; -FAMO-136 PO; -FURO20TA4 PO; -IOHEXOL-350 75 ML VIAL IV ONE; -LEVO100T4 PO; +LEVO88CA5 PO; -RIVA15TA PO; -SEMA1PEN3 SQ; +SEMA2PEN SQ; +SPIR25TA6 PO; -TRAM50TA4 PO; +VITAD50000 PO; +centrum PO; +tylenol arthritis PO
[2025-06-22] MEDS: 0.9%NACL 1000ML 1,000 ML IV SCH ×2 (10:01→17:04)
[2025-06-22] MEDS ORDERED: IODIXANOL 320 MG/ML 100 ML VIAL ONE (11:31)
[2025-06-22] MEDS ORDERED: LIDOCAINE HCL 400MG/20ML VIAL ONE ×2 (11:31→13:20)
[2025-06-22] MEDS ORDERED: HEParin-NS 1,000 UNIT/500 ML 1,000 ML IV ONE (11:43)
[2025-06-22] MEDS ORDERED: MIDAZOLAM HCL 1 MG/ML 2ML VIAL ONE ×4 (11:48→12:24)
[2025-06-22] MEDS ORDERED: NITROGLYCERIN 50MG VIAL ONE (11:57)
[2025-06-22] MEDS ORDERED: ATROPINE 1MG SYG IVP ONE (12:07)
[2025-06-22] MEDS ORDERED: HEParin-NS 1,000 UNIT/500 ML 500 ML IV ONE (12:31)
[2025-06-22] MEDS ORDERED: GLUCAGON 1MG KIT 1 MG ML IM PRN (14:00)
[2025-06-22] MEDS ORDERED: DEXTROSE 50%-WATER 50 ML DISP.SYRIN IV PRN (14:00)
[2025-06-22] MEDS ORDERED: NITROGLYCERIN 0.4 MG SL TAB SL PRN (14:00)
--- NOTE | 2025-06-22 14:05 | PRN ---
Procedure Note INDICATION FOR PROCEDURE: [] Thrombosed left common iliac vein stent with resultant 70% compression PROCEDURE: [] Conscious sedation from Ultrasound-guided right internal jugular sheath placement initially with a 9 Maori system and upsized to a 24 Maori system specifically the PROTRIEVE sheath INTRAVASCULAR ULTRASOUND OF LEFT COMMON FEMORAL VEIN LEFT EXTERNAL ILIAC VEIN AND LEFT COMMON ILIAC VEIN INARI THROMBECTOMY OF PARTIALLY THROMBOSED LEFT COMMON ILIAC VEIN STENT WITH THE USE OF REVCORE THROMBECTOMY CATHETER DEPLOYED AT SETTINGS OF 1/1.5/2/2.5/3/3.5 Angioplasty to proximal portion of left common iliac vein stent with the use of an 18 mm balloon DATE OF PROCEDURE: June 22, 2025 SALES PRODUCT MANAGER: Cruz SwiftCPaty PROCEDURE NOTE: [] Patient was brought to the catheterization suite and prepped and draped in sterile fashion. An IV was started if not already in place and right internal jugular region was exposed for venous access. Ultrasound guidance was used for venous access within the right internal jugular vein and initially a 9 Maori sheath was placed into the right internal jugular vein. Wire was then placed into the left common femoral vein under fluoroscopic guidance. 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 We then upsized with dilators and eventually placed the PROTRIEVE sheath and then replace the glidewire with a super stiff Amplatz. This was done with a exchange catheter. Next the REVCORE thrombectomy catheter was then advanced within the region of the stent the filter was deployed on the sheath and multiple passes were made in multiple settings throughout the stent at 1, 1.5, 2, 2.5, 3, 3.5 aspiration was then performed with a significant thrombus burden removed. Intravascular ultrasound revealed that compression was reduced from greater than 70% to less than 25%. Then used a balloon 18 mm to flare the common iliac vein stent struts and did that to nominal pressure for approximately 45 seconds. At end of case and an RV closure system and utilized and sheath was removed. No complications occurred. FINDINGS: [] 61% compression secondary to partial thrombosed common iliac and external iliac vein stent No evidence of left common femoral vein compression Successful thrombectomy with thrombus retrieval system. PLAN: [] Patient will remain in the hospital overnight and observation. We will check labs in a.m.. 2 hours bedrest. Initiate antiplatelet therapy. CRUZ JAMA MD Jun 22, 2025 14:05
[2025-06-22] MEDS ORDERED: MICO45CR16 (17:15)
[2025-06-22] MEDS ORDERED: CLOP75TA32 PO (17:15)
[2025-06-22] MEDS ORDERED: FLUC150T48 PO (17:15)
[2025-06-22] MEDS ORDERED: ERGO500093 PO (17:15)
[2025-06-23 04:17] VITALS: BP 124/62; PULSE 58; RESP 20; TEMP 97.8
[2025-06-23 04:36] LABS: NUCLEATED RED BLOOD CELLS 0.0 % (0.0-0.19); PLATELET COUNT (AUTO) 176.0 K/uL (130-400); RED BLOOD CELL COUNT(AUTO) 3.39 MIL/uL (4.00-5.50); RED CELL DISTRIBUTION WIDTH 13.7 % (11.0-15.5); WHITE BLOOD COUNT (AUTO) 4.6 K/uL (4.8-10.8)
[2025-06-23 04:54] LABS: CREATININE 0.7 mg/dL (0.5-1.0); GLOMERULAR FILTR. RATE CALC 91.0 mL/min (>90); GLUCOSE,RANDOM 83.0 mg/dL (70-105); SODIUM SERUM 141.0 mmol/L (136-145); UREA NITROGEN, BLOOD 25.0 mg/dL (7-18)
[2025-06-23] MEDS: MAGNESIUM 2GM PREMIX 50ML 50 ML IV SCH (05:46)
--- NOTE | 2025-06-23 07:06 | NUR ---
DR. JAMA AT BEDSIDE REMOVED CLOSURE STITCHES REMOVED, CLEAN AND INTACT, OKAY TO GO HOME TODAY, SCRIPT DONE FOR ASPIRIN AND PLAVIX, 2 WEEKS OUTPATIENT F/U STONE, [address] JAMA.
--- NOTE | 2025-06-23 07:30 | DS ---
Discharge Summary HOSPITAL COURSE SUMMARY: Patient was admitted from the outpatient setting after having had a procedure in the catheterization lab as described below. Overnight no complications took place rhythms remained stable and laboratory data postprocedure day 1 also were stable. It was felt patient could be dismissed home [employer]ALS DEVELOPER(S): None PROCEDURES: 1. Intravascular ultrasound of left common femoral vein left external iliac vein and left common iliac vein were stent has been placed 2. INARI thrombectomy of thrombosed region of left common iliac vein stent with significant thrombus removed 3. Angioplasty to left common iliac vein stent with the use of a 20 mm balloon PROBLEM(S): Iliac vein compression Lymphedema Morbid obesity Hypertension Hypothyroid state DISCHARGE INSTRUCTIONS: Patient has been instructed on no heavy lifting 5 lb or greater for 3 days Continue with dual antiplatelet therapy Follow up with Dr. Sherrill oseguera in 1-2 weeks Follow up with Dr. Fulton in 4 weeks Continue with tactile pneumatic compression system at home Continue with physiotherapy Home Meds Active Scripts Losartan Potassium (Losartan Potassium) 50 Mg Tablet, 50 MG PO DAILY for 30 Days, #30 TAB 3 Refills Prov:ARNULFO HOWELLP 08/25/22 Reported Medications Miconazole Nitrate (Miconazole 7) 2 % Cream.appl, 1 STEPHEN .AD HS for under breast folds for rash for 7 Days, #45 GM 0 Refills 06/22/25 Fluconazole (Fluconazole) 150 Mg Tablet, 1 TAB PO QODAY for 1 Day, #1 TAB 0 Refills 06/22/25 Clopidogrel Bisulfate (Clopidogrel) 75 Mg Tablet, 1 TAB PO DAILY for 30 Days, #30 TAB 0 Refills 06/22/25 Ergocalciferol (Vitamin D2) (Vitamin D2) 1,250 Mcg (96148 Unit) Capsule, 1 CAP PO [id number] for 28 Days, #4 CAP 0 Refills 06/22/25 Semaglutide (Ozempic) 2 Mg/0.75 Ml (8 Mg/3 Ml) Pen.injctr, 2 MG SQ thurs 06/19/25 Cholecalciferol (Vitamin D3) 1,250 Mcg (24130 Unit) Cap, 39737 UNITS PO weekly, CAP 06/19/25 Levothyroxine Sodium (Levothyroxine) 88 Mcg Capsule, 88 MCG PO AM, CAP 06/19/25 [centrum] No Conflict Check, 1 TAB PO DAILY 06/19/25 Spironolactone (Spironolactone) 25 Mg Tablet, 25 MG PO DAILY, TAB 06/19/25 Discontinued Reported Medications [tylenol arthritis] No Conflict Check, 1 TAB PO AD PRN for PAIN 06/19/25 Tramadol Hcl (Tramadol HCl) 50 Mg Tablet, 50 MG PO AD, TAB 08/21/22 Semaglutide (Ozempic) 1 Mg/0.75 Ml Pen.injctr, 1 MG SQ QWEEK 08/21/22 Cholecalciferol (Vitamin D3) (Vitamin D3) 1,250 Mcg Capsule, 5000 MCG PO QWEEK, CAP 08/21/22 Levothyroxine Sodium (Synthroid 100 Mcg Tab) 100 Mcg Tablet, 100 MCG PO DAILY, TAB 08/21/22 Discontinued Scripts Furosemide (Furosemide) 20 Mg Tablet, 20 MG PO DAILY for 30 Days, #30 TAB 0 Refills Prov:ARNULFO HOWELL [facility] 08/25/22 Famotidine (Pepcid) 20 Mg Tablet, 20 MG PO DAILY for 30 Days, #30 TAB 3 Refills Prov:ARNULFO HOWELL [facility] 08/25/22 Rivaroxaban (Xarelto) 15 Mg Tablet, 15 MG PO BID for 21 Days, #42 TAB 0 Refills Prov:ARNULFO HOWELL [facility] 08/25/22 SWETA FULTON MD Jun 23, 2025 07:30
[2025-06-23 07:45] VITALS: BP_SYST 122; BP_SYST 190; BP_DIAS 64; BP_DIAS 67; PULSE 58; PULSE 85; RESP 20; TEMP 98.8; TEMP 98.9
[2025-06-23 10:38] VITALS: O2SAT 100
[2025-06-23] MEDS ORDERED: ASPI-1005 PO (11:21)
--- NOTE | 2025-06-23 12:40 | NUR ---
Patient discharged home with family. Patient and family educated on home medications, incision care, and follow up appointments. Patient and family verbalized understanding. IV and tele removed. Belongings taken. Patient wheeled to private vehicle by SWITCHING OPERATOR, family accompanied.
== END 2025-06-23 12:20 | disposition home or self-care (01) ==
LOC: DAH 08:39 → UNDOADMOB 08:40 → DAH 08:40 → DAHIP 08:40 → 2AH 14:15
PROVIDERS: ADMIT Internal Medicine Cardiovascular Disease; ATTEND Internal Medicine Cardiovascular Disease
DX: I87.2 Venous insufficiency (chronic) (peripheral) (principal); I87.1 Compression of vein; I89.0 Lymphedema, not elsewhere classified; E66.01 Morbid (severe) obesity due to excess calories; M54.50 Low back pain, unspecified; E03.9 Hypothyroidism, unspecified; I10 Essential (primary) hypertension; Z86.2 Personal history of diseases of the blood and blood-forming organs and certain disorders involving the immune mechanism; Z79.899 Other long term (current) drug therapy; Z68.42 Body mass index [BMI] 45.0-49.9, adult; Z86.718 Personal history of other venous thrombosis and embolism
CPT/HCPCS: 80048 ×2; 85025; 85610; 85730; 36415 ×2; 37187; 37252; 37253 ×2; 37248; 99156; 99157 ×5; 96365; 83735; 85027; C1887; C1769; C1894 ×4; C1725; C1753; C1757; G0378 ×22; J3010 ×3; J3490 ×3; J1644 ×3; J2250 ×4; Q9967; A4215; A4223 ×3; A4222; A4221; A4663; A4216; A4606; J3475; 36012; 75822; J0461